=== PATIENT | female | born 1980 | race Caucasian/White ===

== ENCOUNTER 2023-12-11 14:08 | Emergency (ER) | payer OTHER, SELFPAY ==
[2023-12-11 14:10] VITALS: BP 193/112
--- NOTE | 2023-12-11 15:32 | ED.GENMED ---
History of Present Illness
General
Chief Complaint: Headache
Source: patient
Exam Limitations: none
Time Seen by Provider: 12/11/23 15:23
Travel History
Have you had any contact with someone who has COVID-19?: No
Do you have any symptoms of coronavirus? Fever > 100 degrees, chills, cough, shortness of breath, sore throat, loss of taste or smell, muscle aches, or headache?: No
History of Present Illness
History of Present Illness:
See MDM
Past History
Past History
ED Past Medical History: Psychiatric (Anxiety, Depression) and Other (Migraine, PCOS)
ED Past Surgical History: Cholecystectomy and Tonsilectomy
Social History
Tobacco: Former smoker
Alcohol: Occasional
Personal: (and has a Partner of the oposite sex)
Living: with family
Phy Exam
Physical Exam
Physical Exam:
See MDM
Course
Orders/Labs/Results
Orders:
Orders
12/11/23 15:31
0.9% Sodium Chloride 1000 ml [Nss] 1,000 ml IV BOLUS
Diphenhydramine [Benadryl] 25 mg IV NOW STA
Ketorolac [Toradol] 30 mg IV NOW STA
Metoclopramide [Reglan] 10 mg IV NOW STA
12/11/23 15:48
Complete Blood Count/With Diff Urgent
Comprehensive Metabolic Panel Urgent
12/11/23 17:16
Butalb/Acetaminophen/Caffeine [Fioricet] 1 tab PO NOW STA
Dexamethasone Sod Phosphate [Decadron] 10 mg IV NOW STA
12/11/23 20:19
Butalb/Acetaminophen/Caffeine [Fioricet] 1 tab PO NOW STA
Abnormal Lab Results
12/11/23
15:48
WBC 13.3 H 10^3/uL
(4.8-10.8)
RBC 5.44 H 10^6/uL
(4.20-5.40)
RDW 14.7 H %
(11.5-14.5)
Abs Immat Gran (auto) 0.1 H 10^3/uL
(0-0.05)
Absolute Neuts (auto) 7.9 H 10^3/uL
(1.4-6.5)
Absolute Lymphs (auto) 4.0 H 10^3/uL
(1.2-3.4)
Absolute Monos (auto) 0.9 H 10^3/uL
(0.1-0.6)
Chloride 108 H mmol/L
(98-107)
Carbon Dioxide 20 L mmol/L
(22-30)
ALT 36 H U/L
(0-35)
12/11/23 15:48
12/11/23 15:48
Vital Signs
Initial and Last Documented VS:
Initial Vital Signs
Temp Pulse Resp BP Pulse Ox
99.2 F 79 20 193/112 99
12/11/23 14:10 12/11/23 14:10 12/11/23 14:10 12/11/23 14:10 12/11/23 14:10
Last Documented Vital Signs
Temp Pulse Resp BP Pulse Ox
99.2 F 75 18 153/89 97
12/11/23 14:10 12/11/23 16:00 12/11/23 16:00 12/11/23 17:00 12/11/23 17:00
MDM/Problems Addressed
Differential Diagnosis Includes:
HPI and MDM Narrative:
43-year-old female presenting for evaluation of headache. She has a history of migraines. She started with a headache earlier this morning. She took her migraine medicine and then Excedrin. Symptoms appear to have improved but returned quickly.
Patient complaining of nausea and photophobia. Although she states she has never had a headache this bad, family at bedside states that she has. Went into the room, patient has a cold compress over her eyes. She states that her left arm feels
tingly. Sensation is grossly intact to both extremities. Muscle strength intact. Pupils equal reactive. Patient states she has had prior imaging of her brain before. Given no objective neurodeficits, we discussed low utility of CT. We
discussed that we will reconsider depending on her wants to treatment. Will give IV fluids, IV Toradol, IV Reglan and IV Benadryl
Physical exam
General: Lying in bed comfortably
HEENT: protecting airway. Pupils equal reactive.
Neck: appears supple
CV: No evidence of cyanosis
Resp: No accessory muscle use
Abd: Non-distended
Extremities: No deformities
Neuro: alert. Sensation and muscle strength grossly intact upper extremities
Psych: Normal affect
Skin: Intact
Problems Addressed including Acute and Chronic Conditions affecting care:
1. Migraine
Acuity: acute
Prognosis: stable
Details: Patient has no objective neurodeficits. Will give IV Toradol, IV Reglan, IV Benadryl. If not adequately responding to treatment, will consider imaging
Updates
4:30 PM: Patient sleeping
5:15 PM: Although patient looks more comfortable, she states her headache is unchanged. Will give dose of Decadron and Fioricet
8:20 PM after prolonged observation, patient feels comfortable going home
Differential Diagnosis (but not limited to): Migraine, tension headache
Testing considered: CT head but will reassess after treatment
Drug therapy (if applicable): OTC meds, please see d/c instruction regarding Rx drugs
Amount and/or Complexity of Data Reviewed
Clinical info obtained from: Patient. Family at bedside states she has had headaches this bad
External data reviewed: N/A
Labs I independently reviewed (but not limited to): Mild leukocytosis
Radiology: N/A
Pulse Ox: not hypoxic
EKG independently reviewed: N/A
Drug And Alcohol Counselor: N/A
Critical Care: N/A
Risk of Complication:
Social Determinants of health: Good social support
Discussed with other providers: N/A
Escalation of Care includes Admit/Obs: After being observed in the Emergency Department, pt stable for discharge.
Occasional wrong word or 'sound a like' substitutions may have occurred due to the inherent limitations of voice recognition software. Read the chart carefully and recognize, using context, where substitutions have occurred.
*Critical Care Note
Total Time (30-74mins, 75-104mins- exclusive of procedures): Not Applicable
ED Attending Note
-
Portions of this chart may have been created with voice recognition software.� Occasional wrong word or��sound alike� substitutions may have occurred due to the inherent limitations of voice recognition software.
Discharge Plan
Departure
Patient Disposition: Home (Routine Discharge)
Date of Disposition: 12/11/23
Time of Disposition: 20:22
Patient with high blood pressure during this ER visit?: Yes
Discharge Problem:
Migraine
Instructions: Migraines (DC), BLOOD PRESSURE
Prescriptions:
New
fxbnkhnimk-dfjzbvhdtfgai-fsts [Fioricet] 50-300-40 mg capsule
1 cap PO Q8H PRN (Reason: Headache) Qty: 14 0RF
No Action
cefdinir 300 mg capsule
300 mg PO BID 7 Days Qty: 14 0RF
Referrals:
Candy Ray MD [Family Provider] -
Activity Restrictions/Additional Instructions:
Please return for any worsening symptoms.
You may return at any time if you have further concerns.
Please follow up with your doctor at the first available appointment, preferably this week.
Thank you for choosing [facility].
Interventions
Interventions:
*Risk Screen - Suicide Last Done: 12/11/23 15:37
*General Assessment Last Done: 12/11/23 15:37
*Neglect/Abuse Screening Last Done: 12/11/23 15:37
ED- Fall Risk Assessment Last Done: 12/11/23 15:58
*ED COVID-19 Vaccine History Last Done: 12/11/23 14:10
ED- Neurological Assessment Last Done: 12/11/23 15:57
Discharge Date and Time
Print Language: TURKISH
[2023-12-11 15:37] VITALS: BMI 57.8
[2023-12-11] MEDS: NSS 1000 IV (15:53)
[2023-12-11] MEDS: BENADRYL 25 MG IV (15:53)
[2023-12-11] MEDS: TORADOL 30 MG IV (15:54)
[2023-12-11] MEDS: REGLAN 10 MG IV (15:54)
[2023-12-11 16:00] VITALS: BP 158/90
[2023-12-11 16:11] LABS: % Basophils 0.5 % (0-2); % Eosinophils 2.3 % (0-6); % Immature Granulocytes 0.4 % (0-0.5); % Lymphocytes 30.5 % (20.5-51.1); % Monocytes 6.6 % (1.7-9.3); % Neutrophils 59.7 % (42.2-75.2); Absolute Basophils 0.1 10^3/uL (0-0.2); Absolute Eosinophils 0.3 10^3/uL (0-0.7); Absolute Immature Granulocytes 0.1 10^3/uL (0-0.05); Absolute Monocytes 0.9 10^3/uL (0.1-0.6); Absolute Neutrophils 7.9 10^3/uL (1.4-6.5); Hematocrit 46.7 % (37.0-47.0); Hemoglobin 15.4 g/dL (12.0-16.0); Mean Corpuscular Hgb 28.3 pg (27.0-31.0); Mean Corpuscular Volume 85.8 fL (81.0-99.0); Mean Platelet Volume 10.4 fL (7.4-10.4); Nucleated Red Blood Cells % 0 %; Platelet Count 394 10^3/uL (130-400); Red Blood Cell Count 5.44 10^6/uL (4.20-5.40); Red Cell Dist. Width 14.7 % (11.5-14.5); White Blood Cell Count 13.3 10^3/uL (4.8-10.8)
[2023-12-11 16:22] LABS: ALT (SGPT) 36 U/L (0-35); AST (SGOT) 33 U/L (14-36); Albumin 4.2 g/dl (3.5-5.0); Alkaline Phosphatase 99 U/L (38-126); Blood Urea Nitrogen 15 mg/dl (7-17); Calcium 9.4 mg/dl (8.4-10.2); Carbon Dioxide 20 mmol/L (22-30); Chloride 108 mmol/L (98-107); Estimated Creatinine Clearance > 125 ml/min; Glucose 95 mg/dl (70-99); Potassium 4.1 mmol/L (3.5-5.1); Sodium 139 mmol/L (135-145); Total Bilirubin 0.5 mg/dl (0.2-1.3); Total Protein 7.6 g/dl (6.3-8.2); eGFR > 60.00
[2023-12-11 17:00] VITALS: BP 153/89
[2023-12-11] MEDS: FIORICET 1 TAB PO ×2 (17:40→20:28)
[2023-12-11] MEDS: DECADRON 10 MG IV (17:41)
== END 2023-12-11 20:42 | disposition home or self-care (01) ==
LOC: EMR 14:08
PROVIDERS: EMERGENCY PHYSICIAN Student in an Organized Health Care Education/Training Program; FAMILY PHYSICIAN Family Medicine
DX: R51.9 Headache, unspecified (principal); Z87.891 Personal history of nicotine dependence; Z90.49 Acquired absence of other specified parts of digestive tract
CPT/HCPCS: 99283; 96374; 96375; 96361; 80053; 85025

== ENCOUNTER 2024-01-24 20:34 | Emergency (ER) | payer OTHER, SELFPAY ==
[2024-01-24 20:36] VITALS: BP 181/104
--- NOTE | 2024-01-24 20:57 | ED.GENMED ---
History of Present Illness
General
Chief Complaint: Breathing Problem
Source: patient
Exam Limitations: none
Time Seen by Provider: 01/24/24 20:46
Nursing documentation reviewed up to this point in time: agreed with
History of Present Illness
History of Present Illness:
43-year-old female with past medical history of migraines PCOS anxiety depression presents to the ER for evaluation of cough and subjective fevers for the past couple days. She has not taken her temperature but has felt feverish. She has had a
nonproductive cough for the past several days and now has left back pain from coughing. She does get her breath with cough. She denies any lower extremity swelling no prior history PE. She is on control but is also on a preventative daily
aspirin prescribed by her doctor.
Past History
Past History
ED Past Medical History: Psychiatric (Anxiety, Depression) and Other (Migraine, PCOS)
ED Past Surgical History: Cholecystectomy and Tonsilectomy
Social History
Tobacco: Former smoker
Alcohol: Occasional
Personal: (and has a Partner of the oposite sex)
Living: with family
Review of Systems
Review of Systems
Allergies reviewed?: Yes
All Other Systems: ROS reviewed and negative except as documented in HPI and ROS
Constitutional: Reports fever
Respiratory: Reports cough and trouble breathing
Cardiac: Reports no symptoms
ABD/GI: Reports no symptoms
: Reports no symptoms
Musculoskeletal: Reports no symptoms
Skin: Reports no symptoms
Neurological: Reports no symptoms
Hematologic/Lymphatic: Reports no symptoms
Psychiatric: Reports no symptoms
Phy Exam
General Physical Exam
General Presentation: no apparent distress
General age: appears stated age
General Skin: warm and dry
General Habitus: normal
General Mental: alert
General Hydration: appears well hydrated
Cardiovascular Exam
Cardiovascular Exam: regular rate/rhythm, no murmur and normal peripheral pulses
Pulmonary Exam
Pulmonary Exam: lungs clear, no respiratory distress and other (+cough )
Neurological Exam
Neurological Exam: alert and oriented x3
Musculoskeletal Exam
Musculoskeletal Exam: full ROM
Skin Exam
Skin Exam: normal color and warm/dry
Psychiatric Exam
Psychiatric Exam: normal mood/affect
Course
Orders/Labs/Results
Orders:
Orders
01/24/24 20:39
Electrocardiogram (*1) Urgent
Reason for Study: Shortness of Breath
EKG- Treatment ONCE
01/24/24 20:53
IV Insert/Care/Rem.- Treatment PRN
Ketorolac [Toradol] 15 mg IV NOW STA
Chest [CR Chest - 2 Views ] Urgent
Comment:
Reason For Exam: cough fever
01/24/24 20:54
Albuterol Nebs [Ventolin Nebules] 2.5 mg INH R NOW STA
Dexamethasone Pf [Decadron] 10 mg PO NOW STA
01/24/24 21:16
Complete Blood Count/With Diff Urgent
Comprehensive Metabolic Panel Urgent
01/24/24 22:50
Benzonatate [Tessalon Perles] 200 mg PO NOW STA
01/24/24 22:51
Acetaminophen [Tylenol] 1,000 mg PO NOW STA
Albuterol Nebs [Ventolin Nebules] 2.5 mg INH R NOW STA
Abnormal Lab Results
01/24/24
21:16
WBC 13.7 H 10^3/uL
(4.8-10.8)
RDW 14.9 H %
(11.5-14.5)
Absolute Neuts (auto) 7.1 H 10^3/uL
(1.4-6.5)
Absolute Lymphs (auto) 5.1 H 10^3/uL
(1.2-3.4)
Absolute Monos (auto) 1.0 H 10^3/uL
(0.1-0.6)
Potassium 3.4 L mmol/L
(3.5-5.1)
Glucose 128 H mg/dl
(70-99)
01/24/24 21:16
01/24/24 21:16
Vital Signs
Initial and Last Documented VS:
Initial Vital Signs
Temp Pulse Resp BP Pulse Ox
98.6 F 85 24 181/104 96
01/24/24 20:36 01/24/24 20:36 01/24/24 20:36 01/24/24 20:36 01/24/24 20:36
Last Documented Vital Signs
Temp Pulse Resp BP Pulse Ox
98.6 F 80 16 150/85 96
01/24/24 20:36 01/24/24 21:29 01/24/24 21:29 01/24/24 21:29 01/24/24 21:29
MDM/Problems Addressed
Differential Diagnosis Includes:
Not limited to bronchitis, viral syndrome, pneumonia
MDM/Problems Addressed:
Patient is a 43-year-old female who has had cough subjective fevers for the past several days. Patient presents to the ER with audible cough but lungs are clear feels that her breathing is tight. No history of asthma. She is on control and
aspirin no prior history of DVT PE. She has obvious bronchitis x-ray negative. Patient was given a neb here with Toradol and Decadron. Patient does feel some pains in the left back with coughing this is likely very muscular as patient has this
with coughing. Patient on reexam still with cough will give Tessalon Perles Tylenol for discomfort and another neb.
Case discussed ED physician s/s consistent w/ bronchitis will DC home with Tessalon Perles and inhaler.
*Radiology
Radiology exam reviewed: radiology read reviewed
*Pulse Oximetry
Patient hypoxic: no
*EKG
Interpretation: normal
Heart Rate: 80
Rate: normal
Rhythm: sinus
Ischemia: no ischemia
*Critical Care Note
Total Time (30-74mins, 75-104mins- exclusive of procedures): Not Applicable
ED Attending Note
-
Portions of this chart may have been created with voice recognition software.� Occasional wrong word or��sound alike� substitutions may have occurred due to the inherent limitations of voice recognition software.
Discharge Plan
Departure
Patient Disposition: Home (Routine Discharge)
Date of Disposition: 01/24/24
Time of Disposition: 23:27
Patient with high blood pressure during this ER visit?: Yes
Condition: Fair
Covid-19: Not Applicable
Discharge Problem:
Bronchitis
Instructions: Bronchitis, Adult ED, BLOOD PRESSURE
Prescriptions:
New
albuterol sulfate 90 mcg/actuation HFA aerosol inhaler
2 inh inhalation Q6H PRN (Reason: shortness of breath or wheezing) Qty: 8.5 0RF
benzonatate 200 mg capsule
200 mg PO TID PRN (Reason: Cough) Qty: 10 0RF
prednisone 50 mg tablet
50 mg PO DAILY Qty: 5 0RF
No Action
cefdinir 300 mg capsule
300 mg PO BID 7 Days Qty: 14 0RF
bgyawggicj-nqznxkscykrrh-dvws [Fioricet] 50-300-40 mg capsule
1 cap PO Q8H PRN (Reason: Headache) Qty: 14 0RF
Referrals:
Aissatou Markham PA [Family Provider] -
Activity Restrictions/Additional Instructions:
As discussed a well-hydrated. Prescriptions were sent to your pharmacy including inhaler, cough medicine and steroids.
Take as directed. Be sure to get plenty of rest. You may take ibuprofen every 8 hours with food for back discomfort which is likely caused from coughing and may also alternate with Tylenol.
follow-up with your family doctor in the next several days for reevaluation return if any worsening of symptoms including worsening shortness of breath/ pain/fevers.
Interventions
Interventions:
*Risk Screen - Suicide Last Done: 01/24/24 20:36
*General Assessment Last Done: 01/24/24 20:36
*Neglect/Abuse Screening Last Done: 01/24/24 20:36
ED- Fall Risk Assessment Last Done: 01/24/24 22:01
ED- Cardiac Assessment Last Done: 01/24/24 22:01
ED- Pulmonary Assessment Last Done: 01/24/24 22:01
Discharge Date and Time
Print Language: UKRAINIAN
[2024-01-24] MEDS: VENTOLIN NEBULES 2.5 MG INH ×2 (21:17→23:22)
[2024-01-24] MEDS: TORADOL 15 MG IV (21:21)
[2024-01-24] MEDS: DECADRON 10 MG PO (21:21)
[2024-01-24 21:29] VITALS: BP 150/85
[2024-01-24 21:32] LABS: % Basophils 0.4 % (0-2); % Eosinophils 3.2 % (0-6); % Immature Granulocytes 0.3 % (0-0.5); % Monocytes 7.2 % (1.7-9.3); % Neutrophils 51.9 % (42.2-75.2); Absolute Basophils 0.1 10^3/uL (0-0.2); Absolute Eosinophils 0.4 10^3/uL (0-0.7); Absolute Lymphocytes 5.1 10^3/uL (1.2-3.4); Absolute Neutrophils 7.1 10^3/uL (1.4-6.5); Hematocrit 39.4 % (37.0-47.0); Hemoglobin 13.5 g/dL (12.0-16.0); Mean Corp Hgb Conc. 34.3 g/dL (33.0-37.0); Mean Corpuscular Hgb 28.5 pg (27.0-31.0); Mean Corpuscular Volume 83.1 fL (81.0-99.0); Mean Platelet Volume 10.2 fL (7.4-10.4); Nucleated Red Blood Cells % 0 %; Platelet Count 343 10^3/uL (130-400); Red Blood Cell Count 4.74 10^6/uL (4.20-5.40); Red Cell Dist. Width 14.9 % (11.5-14.5); White Blood Cell Count 13.7 10^3/uL (4.8-10.8)
[2024-01-24 21:44] LABS: ALT (SGPT) 25 U/L (0-35); AST (SGOT) 25 U/L (14-36); Albumin 3.8 g/dl (3.5-5.0); Alkaline Phosphatase 74 U/L (38-126); Blood Urea Nitrogen 17 mg/dl (7-17); Calcium 9.5 mg/dl (8.4-10.2); Carbon Dioxide 23 mmol/L (22-30); Chloride 107 mmol/L (98-107); Glucose 128 mg/dl (70-99); Potassium 3.4 mmol/L (3.5-5.1); Sodium 138 mmol/L (135-145); Total Bilirubin 0.3 mg/dl (0.2-1.3); eGFR > 60.00
[2024-01-24] MEDS: TESSALON PERLES 200 MG PO (23:21)
[2024-01-24] MEDS: TYLENOL 1000 MG PO (23:22)
== END 2024-01-24 23:44 | disposition home or self-care (01) ==
LOC: EMR 20:34
PROVIDERS: Nurse Practitioner; EMERGENCY PHYSICIAN Emergency Medicine; FAMILY PHYSICIAN Physician Assistant Medical
DX: J40 Bronchitis, not specified as acute or chronic (principal); F41.9 Anxiety disorder, unspecified; F32.A Depression, unspecified; Z87.891 Personal history of nicotine dependence
CPT/HCPCS: 99285; 94640; 96374; 71046; 80053; 85025; 93005

== ENCOUNTER → 2024-05-04 06:53 | Outpatient (REF) | payer BC, SELFPAY | LOC: HWWDC 06:53 | PROVIDERS: ATTENDING PHYSICIAN Physician Assistant Medical | DX: Z12.31 Encounter for screening mammogram for malignant neoplasm of breast (principal) | CPT/HCPCS: 77063; 77067 ==

== ENCOUNTER → 2024-07-08 16:08 | Outpatient (REF) | payer BC, SELFPAY | LOC: RAD 16:08 | PROVIDERS: ATTENDING PHYSICIAN Physician Assistant Medical | DX: M79.605 Pain in left leg (principal); M79.89 Other specified soft tissue disorders; S89.92XA Unspecified injury of left lower leg, initial encounter; M25.562 Pain in left knee | CPT/HCPCS: 73564; 93971 ==